=== PATIENT | female | born 1955 | race Two or more races ===

== ENCOUNTER 2024-09-23 12:00 | Inpatient (IN) | payer OTHER ==
[~2024-09-23] VITALS: Ht 157.5 cm; Wt 73.5 kg
[~2024-09-23 12:00] MED LIST: AMBIEN10 MG PO; ASA81 MG PO; CIPRO750 MG PO; CIPROFLOXACIN750 MG PO; CLONAZEPAM1 MG PO; CYMBALTA30 MG PO; Colace 100MG PO; DOCUSATE SODIU100 MG PO; ENALAPRIL MALEA10 MG PO; GLIPIZIDE2.5 MG/BO1 PO; INDAPAMIDE1.25 MG PO; METHYLPRED4 MG/DOSE- PO; NEURONTIN PO; NORVASC5 MG PO; PERCOCET 5/3251 TAB PO; PNEU16DI2; SIMVASTATIN10 MG PO; SYNTHROID50 MCG
[2024-09-23] MEDS ORDERED: LANTUS SOL100 UNIT/1 (14:24)
[2024-10-04] MEDS ORDERED: VANCOMYCIN HCL 1,000 MG VIAL ONE ×3 (08:54→20:14)
[2024-10-04] MEDS ORDERED: MEDROLPACK PO (09:49)
[2024-10-04] MEDS ORDERED: PERCOCET 5-3251 EACH PO (09:49)
[2024-10-04] MEDS ORDERED: BACTRIM DS TAB1 EACH PO (09:50)
[2024-10-04] MEDS ORDERED: ZOFRAN8 MG PO (09:50)
[2024-10-04] MEDS ORDERED: COLACE100 MG PO (09:51)
[2024-10-04] MEDS ORDERED: GABAPENTIN100 M2 PO (09:51)
[2024-10-04] MEDS ORDERED: NEURONTIN800 MG PO (09:52)
[2024-10-04] MEDS ORDERED: METHYLPREDNISOLONE ACETATE 80 MG/ML VIAL ONE (09:54)
[2024-10-04] MEDS ORDERED: METHYLPREDNISOLONE SOD SUCC 125 MG VIAL ONE ×2 (09:54→15:44)
[2024-10-04] MEDS ORDERED: 0.9 % SODIUM CHLORIDE 1,000 ML IV SCH (12:00)
[2024-10-04] MEDS ORDERED: PROMETHAZINE HCL 50 MG/ML AMPUL IM PRN (12:00)
[2024-10-04] MEDS ORDERED: ENALAPRILAT DIHYDRATE 1.25 MG/ML VIAL IV PRN (12:00)
[2024-10-04] MEDS ORDERED: MORPHINE SULFATE 4 MG/ML VIAL IV ONE ×3 (12:20→16:00)
[2024-10-04] MEDS ORDERED: MORPHINE SULFATE 4 MG/ML VIAL IV SCH (13:00)
[2024-10-04] MEDS ORDERED: DOCUSATE SODIUM 100MG CAP PO SCH (13:00)
[2024-10-04] MEDS ORDERED: FAMOTIDINE/PF 20 MG/2 ML VIAL ONE (15:44)
[2024-10-04] MEDS ORDERED: METHYLPREDNISOLONE SOD SUCC 125 MG VIAL IV SCH (17:00)
[2024-10-04] MEDS ORDERED: FAMOtidine 20 MG TABLET PO SCH (17:00)
[2024-10-04] MEDS ORDERED: ACETAMINOPHEN 500 MG GEL..CAP PO SCH (18:00)
[2024-10-04] MEDS ORDERED: ACETAMINOPHEN 500 MG GEL..CAP PO ONE ×2 (18:03→18:05)
[2024-10-04 18:30] VITALS: BP 144/75; O2SAT 97
[2024-10-04] MEDS ORDERED: VANCOMYCIN HCL 1,000 MG VIAL IV SCH (21:00)
[2024-10-04] MEDS ORDERED: GABAPENTIN 800 MG TABLET PO SCH (21:00)
[2024-10-04 21:33] VITALS: O2SAT 93
[2024-10-04 23:58] VITALS: BP 103/62; O2SAT 98
[2024-10-05] MEDS ORDERED: SODIUM CHLORIDE 0.45 % 1,000 ML IV SCH
[2024-10-05 00:04] VITALS: O2SAT 94
[2024-10-05] MEDS ORDERED: LEVOTHYROXINE SODIUM 50 MCG TABLET PO SCH (06:00)
[2024-10-05] MEDS ORDERED: OxyCODONE HCL/APAP UD (PERCOCET) PO PRN (06:01)
[2024-10-05] MEDS ORDERED: VANCOMYCIN HCL 1,000 MG VIAL ONE ×2 (08:09→14:08)
[2024-10-05] MEDS ORDERED: TAMSULOSIN HCL 0.4 MG CAP PO SCH (09:00)
[2024-10-05] MEDS ORDERED: INSULIN GLARGINE,HUM.REC.ANLOG 1,000 UNITS/10 ML UNITS SUBCUTANEO SCH (09:00)
[2024-10-05] MEDS ORDERED: AMLODIPINE BESYLATE 10 MG TABLET PO SCH (09:00)
[2024-10-05] MEDS ORDERED: Duloxetine HCl 60 MG CAPSULE.DR PO SCH (09:00)
[2024-10-05] MEDS ORDERED: INSULIN LISPRO 1,000 UNIT/10 ML UNITS SUBCUTANEO ONE (13:46)
[2024-10-06 00:44] VITALS: BP 141/78; O2SAT 97
[2024-10-06 02:00] VITALS: O2SAT 95
[2024-10-06 06:16] VITALS: O2SAT 95
[2024-10-06 08:00] VITALS: BP 112/68; O2SAT 96
[2024-10-06 11:25] VITALS: O2SAT 100
[2024-10-06] MEDS ORDERED: DEXTROSE 50 % IN WATER 0.5 G/ML DISP.SYRIN IV PRN (12:45)
[2024-10-06] MEDS ORDERED: INSULIN LISPRO 1,000 UNIT/10 ML UNITS SUBCUTANEO PRN (12:45)
[2024-10-06 13:56] VITALS: O2SAT 100
== END 2024-10-06 14:01 | disposition home or self-care (01) | DRG 402 ==
LOC: SURH 10-04 05:55 → O/R 10-04 05:55 → SURG 10-04 12:00 → SURH 10-04 13:41 → SURG 10-04 15:00 → SURH 10-06 14:01
PROVIDERS: ADMIT Orthopaedic Surgery Orthopaedic Surgery of the Spine; ATTEND Orthopaedic Surgery Orthopaedic Surgery of the Spine
PROC: 0SG0071 Fusion of Lumbar Vertebral Joint with Autologous Tissue Substitute, Posterior Approach, Posterior Column, Open Approach (ICD-10-PCS; 2024-10-04)
PROC: 0ST20ZZ Resection of Lumbar Vertebral Disc, Open Approach (ICD-10-PCS; 2024-10-04)
PROC: 0QB30ZZ Excision of Left Pelvic Bone, Open Approach (ICD-10-PCS; 2024-10-04)
PROC: 07DR0ZZ Extraction of Iliac Bone Marrow, Open Approach (ICD-10-PCS; 2024-10-04)
PROC: 4A1104G Monitoring of Peripheral Nervous Electrical Activity, Intraoperative, Open Approach (ICD-10-PCS; 2024-10-04)
PROC: 4A12X4Z Monitoring of Cardiac Electrical Activity, External Approach (ICD-10-PCS; 2024-10-04)
PROC: XRGB0R7 Fusion of Lumbar Vertebral Joint using Custom-Made Anatomically Designed Interbody Fusion Device, Open Approach, New Technology Group 7 (ICD-10-PCS; principal; 2024-10-04 15:00)
DX: M43.16 Spondylolisthesis, lumbar region (principal); M48.062 Spinal stenosis, lumbar region with neurogenic claudication; I10 Essential (primary) hypertension; E11.9 Type 2 diabetes mellitus without complications